=== PATIENT | male | born 1955 | race Caucasian/White ===

== ENCOUNTER 2018-08-28 09:18 | Outpatient (CLI) | payer OTHER ==
[2018-08-28] MEDS ORDERED: DOBUTamine/DEXTROSE 250 ML IV ONE (09:41)
--- NOTE | 2018-08-28 10:40 | ECHO ---
[email or web address] [address] [address] Main: [phone] Fax: Transthoracic Echocardiogram Name: MICHAEL GALLEGO MR#: [id number] Study Date: 08/28/2018 Study Time: 09:48 AM Date of : 1955 Age: 62 year(s) Height: 185.4 cm (73 in.) Weight: 85.28 kg (188 lb.) BSA: 2.1 m2 Gender: Male Examination: DSE Indication: Doubtamine Stress Echo Image Quality: Contrast: Requested by: Naeem Wayne BP: 154 mmHg/99 mmHg Heart Rate: Rhythm: Normal sinus rhythm Indication: Doubtamine Stress Echo Procedure Staff Musical String Maker: Zacarias Duggan RDCS Reading Physician: Earl Reynoso MD Requesting Provider: Conclusions: This a doubtamine stress echo to evaluate the aortic valve gradients. The left ventricle is preserved with a normal ejection fraction. The prior echo from 07/04/2018 displayed a bicuspid aortic valve with a AV Vmax of 3.1 m/s and a AV mean PG of 27 mmHg and a FRANKY of 1.2 cm2 At 30mc the AV Vmax increased to 5.0 m/s with a AV mean PG of 49 mmHg. and a FRANKY of .69 cm2 Baseline ECG, NSR with no ischemic changes with dobutamine infusion. Measurements: Chambers Valvular Assessment AV/MV Valvular Assessment TV/PV Normal Normal Normal Name Value Range Name Value Range Name Value Range LVOTd 2.3 cm 2.3 cm mm AV Vmax: 5.01 m/s (1 m/s-1.7 m/s) AV maxP mmHg ( - ) AV meanP mmHg ( - ) LVOT Vmax: 0.83 m/s (0.7 m/s-1.1 m/s) FRANKY (Vmax): 0.7 cm2 ( - ) FRANKY (VTI): 1.4 cm ( - ) Continued Measurements: Findings: Exam Comments: This a doubtamine stress echo to evaluate the aortic valve gradients. The left ventricle is preserved with a normal ejection fraction. The prior echo from 07/04/2018 displayed a bicuspid aortic valve with a AV Vmax of 3.1 m/s and a AV mean PG of 27 mmHg and a FRANKY of 1.2 cm2 At 30mc the AV Vmax increased to 5.0 m/s with a AV mean PG of 49 mmHg. and a FRANKY of .69 cm2 Baseline ECG, NSR Patient: MICHAEL GALLEGO Study Date: 08/28/2018 Page 1 of 2 09:48 AM with no ischemic changes with dobutamine infusion. (No Signature Object) Patient: MICHAEL GALLEGO Study Date: 08/28/2018 Page 2 of 2 09:48 AM [id number]
== END 2018-08-28 10:00 | disposition home or self-care (01) ==
LOC: FCATH 09:18
PROVIDERS: ATTEND Thoracic Surgery (Cardiothoracic Vascular Surgery)
DX: Q23.0 Congenital stenosis of aortic valve (principal); I47.1 Supraventricular tachycardia; I77.810 Thoracic aortic ectasia
CPT/HCPCS: J1250

== ENCOUNTER 2018-09-30 07:22 | Day surgery (SDC) | payer OTHER ==
[~2018-09-30 07:22] MED LIST: ASPIRIN EC 325 MG TAB PO ONE; DIAZEPAM 5 MG TAB PO ONE; FAMOTIDINE 20 MG TAB PO ONE; NS 1,000 ML IV ONE; diphenhydrAMINE 25 MG CAP PO ONE
[2018-09-30 08:16] LABS: PLATELET COUNT 180 10^3/uL (150-400)
[2018-09-30 08:24] LABS: INR 1.04 (0.83-1.16); PROTIME(PATIENT) 13.8 SEC (12.0-15.0)
[2018-09-30] MEDS ORDERED: LIDOCAINE 1% 300 MG/30 ML SDV ONE (08:39)
[2018-09-30] MEDS ORDERED: fentaNYL 100 MCG/2 ML INJ ONE (08:39)
[2018-09-30] MEDS ORDERED: MIDAZOLAM 2 MG/2 ML VIAL ONE ×2 (08:39→09:56)
[2018-09-30] MEDS ORDERED: VERAPAMIL 5 MG/2 ML VIAL ONE ×2 (08:40→09:46)
[2018-09-30] MEDS ORDERED: IOPAMIDOL (ISOVUE-370) 150 ML BTL IV ONE (08:40)
[2018-09-30] MEDS ORDERED: HEPARIN 10,000 UNIT/10 ML MDV (1,000 UNIT/ML) ONE (08:40)
--- NOTE | 2018-09-30 08:41 | PDPROPOC ---
Sedation Plan of Care Sedation Plan of Care: vital signs stable, mental status noted, patient educated of risks, benefits, alternatives, patient can tolerate sedation ASA Classification: ASA 1 Planned drugs: fentanyl, midazolam Mallampati Score: Class 1 Mallampati Reference Image: Patient passed 3-3-2 rule?: Yes
--- NOTE | 2018-09-30 08:51 | PDGENHP ---
History & Physical Chief Complaint: Planned aortic valve replacement, aortic root replacement, Lux Maze 4. History of Present Illness: History of bicuspid aortic valve with aortic stenosis and mild annular aortic ectasia. Pertinent Past, Social, Family History: Bicuspid aortic valve, severe aortic stenosis, paroxysmal atrial fibrillation, hypertension. Relevant Physical Exam: Alert and oriented x3, clear lungs bilaterally, regular rate and rhythm with a 2/6 systolic ejection murmur left sternal border Cardiorespiratory Assessment: At the present time he is stable to undergo coronary angiography prior to the planned aortic valve replacement surgery.
[2018-09-30] MEDS ORDERED: ATROPINE SULFATE 1 MG/10 ML SYR IVP PRN (10:07)
[2018-09-30] MEDS ORDERED: NITROGLYCERIN 0.4 MG BTL SL PRN (10:07)
--- NOTE | 2018-09-30 10:13 | PDDXCAT ---
Diagnostic Cath Note - . Date: 09/30/18 Replenishment Merchandising Associate: Renato Indication: other (Preoperative coronary angiogram prior to planned aortic valve replacement surgery.) - Procedure Access: left wrist Procedure: coronary angiography - Materials Left Heart Cath size: 5F Left Heart Cath materials: JL4.0, JR4.0 - Findings-Left Heart Catheterization LM: Large caliber vessel. Bifurcates into the left anterior descending and circumflex distributions. Angiographically free of disease. LAD: Large caliber vessel. 2 principal diagonal branches. Angiographically free of disease. LCX: Moderate caliber vessel. Diminutive after a large proximal 1st obtuse marginal branch. Angiographically free of disease. RCA: Large caliber dominant vessel. The PDA and 4 posterolateral branches are noted. Angiographically free of disease. EDP: The aortic valve was not crossed. Complications: None. Estimated blood loss: <50ml Closure method: TR Band Assessment: Angiographically normal epicardial coronary arteries with a right- dominant system. Known bicuspid aortic valve with critical aortic stenosis and mild annuloaortic ectasia from previous workup. Plan: There are plans for the patient to undergo aortic valve replacement surgery, aortic root replacement and Lux Maze 4 in the near future. Intervention: None.
--- NOTE | 2018-09-30 11:52 | CPEKG ---
Test Reason : OPEN Blood Pressure : / mmHG Vent. Rate : 049 BPM Atrial Rate : 050 BPM P-R Int : 234 ms QRS Dur : 115 ms QT Int : 485 ms P-R-T Axes : 037 -17 038 degrees QTc Int : 438 ms Sinus bradycardia Prolonged PA interval Probable left atrial enlargement Left ventricular hypertrophy Confirmed by Jeanna Caldwell ([id number]) on 09/30/2018 11:52:22 AM Referred By: Confirmed By:Jeanna Caldwell
== END 2018-09-30 13:18 | disposition home or self-care (01) ==
LOC: FCATH 07:22
PROVIDERS: ATTEND Internal Medicine Cardiovascular Disease
PROC: B2111ZZ Fluoroscopy of Multiple Coronary Arteries using Low Osmolar Contrast (ICD-10-PCS; principal; 2018-09-30)
DX: Z01.810 Encounter for preprocedural cardiovascular examination (principal); Q23.1 Congenital insufficiency of aortic valve; I77.819 Aortic ectasia, unspecified site; I48.0 Paroxysmal atrial fibrillation; I10 Essential (primary) hypertension
CPT/HCPCS: 71046; 93005; 93454; 93880; C1769; J1644; J2250; J3010; Q9967

== ENCOUNTER 2018-10-08 05:29 | Inpatient (IN) | payer BC, OTHER ==
[~2018-10-08 05:29] MED LIST changes: -ASPIRIN EC 325 MG TAB PO ONE; -DIAZEPAM 5 MG TAB PO ONE; -FAMOTIDINE 20 MG TAB PO ONE; +LIDOCAINE 1% 2 ML INJ ID PRN; -NS 1,000 ML IV ONE; -diphenhydrAMINE 25 MG CAP PO ONE
[2018-10-08] MEDS ORDERED: MANNITOL 25% 12.5 GM/50 ML VIAL IVP ONE (06:00)
[2018-10-08] MEDS ORDERED: PHENYLEPHRINE HCL 50 MG in NS 250 ML IV ONE (06:00)
[2018-10-08] MEDS ORDERED: ceFAZolin 2 GM/DEXTROSE 100 ML IV ONE (06:00)
[2018-10-08] MEDS ORDERED: MUPIROCIN 2% 22 GM OINT NS ONE (06:00)
[2018-10-08] MEDS ORDERED: DOBUTamine/DEXTROSE 250 ML IV ONE (06:00)
[2018-10-08] MEDS ORDERED: CITRATE DEXTROSE SOLN 500 ML BAG MISC ONE (06:00)
[2018-10-08] MEDS ORDERED: AMINOCAPROIC ACID 5 GM/20 ML VIAL IV ONE (06:00)
[2018-10-08] MEDS ORDERED: MILRINONE/DEXTROSE 100 ML IV ONE (06:00)
[2018-10-08] MEDS ORDERED: NOREPINEPHRINE BITARTRATE 16 MG in NS 250 ML IV ONE (06:00)
[2018-10-08] MEDS ORDERED: CARDIOPLEGIC SOLUTION 1,052.8 ML PF ONE (06:00)
[2018-10-08] MEDS ORDERED: INSULIN REGULAR HUMAN 100 UNIT in NS 100 ML IV ONE (06:00)
[2018-10-08] MEDS ORDERED: niCARdipine/NACL 200 ML IV ONE (06:00)
[2018-10-08] MEDS ORDERED: MILRINONE/DEXTROSE/100 ML BAG IV ONE (06:18)
[2018-10-08] MEDS ORDERED: HEPARIN 10,000 UNIT/10 ML MDV (1,000 UNIT/ML) ONE ×2 (06:18→06:21)
[2018-10-08] MEDS ORDERED: CALCIUM CHLORIDE 1 GM/10 ML INJ ONE ×2 (06:18→06:21)
[2018-10-08] MEDS ORDERED: PROTAMINE SULFATE 50 MG/5 ML VIAL IVP ONE (06:18)
[2018-10-08] MEDS ORDERED: NA BICARBONATE 50 MEQ/50 ML VIAL ONE (06:18)
[2018-10-08] MEDS ORDERED: ADENOSINE 6 MG/2 ML VIAL ONE (06:19)
[2018-10-08] MEDS ORDERED: AMIODARONE HCL 150 MG/3 ML VIAL ONE ×2 (06:19→06:21)
[2018-10-08] MEDS ORDERED: DOPamine/DEXTROSE 400 MG/250 ML BAG IV ONE ×2 (06:19→13:50)
[2018-10-08] MEDS ORDERED: ceFAZolin 1 GM VIAL ONE (06:19)
[2018-10-08] MEDS ORDERED: NITROGLYCERIN/D5W 50 MG/250 ML BOTTLE IV ONE (06:19)
[2018-10-08] MEDS ORDERED: niCARdipine/NACL/200 ML BAG IV ONE (06:19)
[2018-10-08] MEDS ORDERED: ALBUMIN 5% 250 ML BOTTLE IV ONE ×2 (06:20→10:58)
[2018-10-08] MEDS ORDERED: SODIUM BICARBONATE 50 MEQ/50 ML SYR ONE (06:20)
[2018-10-08] MEDS ORDERED: MAGNESIUM SULFATE 1 GM/2 ML VIAL ONE (06:21)
[2018-10-08] MEDS ORDERED: LIDOCAINE 2% 100 MG/5 ML SYR ONE (06:21)
[2018-10-08] MEDS ORDERED: CITRATE DEXTROSE SOLN 500 ML BAG ONE (06:21)
[2018-10-08] MEDS ORDERED: methylPREDNISolone SOD SUCC 1 GM/8 ML VIAL ONE (06:21)
[2018-10-08] MEDS ORDERED: PHENYLEPHRINE 10 MG/ML SDV ONE (06:53)
[2018-10-08] MEDS ORDERED: EPINEPHrine 1 MG/ML INJ ONE (06:53)
--- NOTE | 2018-10-08 06:58 | PDGENHP ---
History and Physical - Chief Complaint pre-op cardiac surgery - History of Present Illness This is a 62 year old male who presents today for elective AVR (bioprosthetic), ascending aortic repair, and pulmonary vein isolation. He was previously seen in our clinic on 08/19/18 and again on 08/23/18. His bicuspid aortic valve stenosis is limiting his active lifestyle with declining exercise tolerance. Associated symptoms include dyspnea and fatigue. He has been in contact with our office regarding a cold and cough which has improved. He still has mild PND. No fever or chills. He does not receive anticoagulation for his atrial fibrillation ([id number] score 1). Since he was seen by our service, he underwent a LHC by Dr. Gross which demonstrated an absence of CAD. US carotid was also negative for disease. History Information - Allergies/Home Medication List Allergies/Adverse Reactions: amlodipine [From [facility]] Allergy (Verified 10/08/18 06:16) Edema Home Medications: Brinzolamide/Brimonidine Tart [Simbrinza 1%-0.2% Eye Drops] 1 drop EACHEYE TID 09/23/18 [Last Taken 10/08/18] Flecainide Acetate 150 mg PO BID 09/23/18 [Last Taken 10/07/18] Herbals/Supplements -Info Only 1 ea PO DAILY 09/23/18 [Last Taken 10/07/18] Levothyroxine [Synthroid 75 mcg (*)] 75 mcg PO DAILY06 09/23/18 [Last Taken ] Losartan Potassium [Cozaar 25 mg (*)] 25 mg PO BID 09/23/18 [Last Taken 10/07/18 ] Magnesium Oxide [Magnesium Oxide 400 mg (*)] 400 mg PO DAILY 09/23/18 [Last Taken 10/06/18] [place]-3 Fatty Acids [Fish Oil 1000 mg (*)] 1,000 mg PO DAILY 09/23/18 [Last Taken 10/07/18] Omeprazole 20 mg PO DAILY 09/23/18 [Last Taken 10/07/18] Vitamin B Complex [Vitamin B Complex (OTC)] 1 each PO DAILY 09/23/18 [Last Taken 10/07/18] Aspirin [Aspirin 81mg (*)] 81 mg PO DAILY 09/30/18 [Last Taken 10/03/18] I have personally reviewed and updated: family history, medical history, social history, surgical history - Social History Smoking Status: Never smoked Review of Systems Review of Systems: ROS: 10pt was reviewed & negative except for what was stated in HPI & below Physical Exam Physical Exam: Gen: NAD, appears well HEENT: NCAT, MMM Cardiac: systolic murmur, no edema Resp: CTAB, no wheezes GI: soft, NT, ND Extremities: no rash or lesion Neuro: A&O, normal mood and affect Temp Pulse Resp BP Pulse Ox 36.9 C 57 L 16 135/90 H 95 10/08/18 06:22 10/08/18 06:22 10/08/18 06:22 10/08/18 06:22 10/08/18 06:22 Lab Data & Imaging Review Visualized and Interpreted Chest x-ray results: Yes Assessment & Plan Assessment: Severe aortic stenosis due to bicuspid aortic valve Dilated ascending aorta, 4.3 cm Paroxysmal atrial fibrillation [id number] 1 Normal coronaries Hypertension Plan: Aortic valve replacement (tissue), ascending aortic resection & grafting, pulmonary vein isolation, and left atrial appendectomy with Dr. Jj.
[2018-10-08] MEDS ORDERED: LR 1,000 ML IV ONE (06:59)
[2018-10-08] MEDS ORDERED: MIDAZOLAM 2 MG/2 ML VIAL IVP ONE (07:10)
[2018-10-08] MEDS ORDERED: fentaNYL 250 MCG/5 ML INJ ONE ×2 (07:11)
[2018-10-08] MEDS ORDERED: PROPOFOL 200 MG/20 ML VIAL ONE (07:11)
[2018-10-08] MEDS ORDERED: MIDAZOLAM 2 MG/2 ML VIAL ONE ×3 (07:12→09:46)
[2018-10-08] MEDS ORDERED: ROCURONIUM 100 MG/10 ML VIAL ONE (07:14)
[2018-10-08] MEDS ORDERED: LIDOCAINE 2% 2 ML INJ ONE ×3 (07:14)
[2018-10-08] MEDS ORDERED: SUCCINYLCHOLINE CHLORIDE 200 MG/10 ML SYR IVP ONE (07:15)
--- NOTE | 2018-10-08 07:19 | PDANEPAE ---
ANE History of Present Illness avr, asc aortic an rep ANE Past Medical History - Cardiovascular History Hx Hypertension: Yes Hx Arrhythmias: Yes Hx Chest Pain: No Hx Coronary Artery / Peripheral Vascular Disease: Yes Hx CHF / Valvular Disease: Yes Hx Palpitations: No Cardiovascular History Comment: AFIB. aortic stenosis. bicupsid aortic valve. murmur - Pulmonary History Hx COPD: No Hx Asthma/Reactive Airway Disease: No Hx Recent Upper Respiratory Infection: Yes Hx Oxygen in Use at Home: No Hx Sleep Apnea: No Sleep Apnea Screening Result - Last Documented: Positive Pulmonary History Comment: yasemin triggers only - Neurologic History Hx Cerebrovascular Accident: No Hx Seizures: No Hx Dementia: No - Endocrine History Hx Diabetes: No Hypothyroid: No Hyperthyroid: No Obesity: no Endocrine History Comment: hypothyroidism - Renal History Hx Renal Disorders: Yes Renal History Comment: hx of prostate surgery 2017 for enlarged prostate. some symptoms returning. pcp told him his kidney function is down a little bit - Liver History Hx Hepatic Disorders: No - Neurological & Psychiatric Hx Hx Neurological and Psychiatric Disorders: No - Cancer History Hx Cancer: No - Congenital Disorder History Hx Congenital Disorders: No - GI History GERD: mild Hx Gastrointestinal Disorders: Yes Gastrointestinal History Comment: GERD. hx of EGD's and Colonoscopy. last EGD done 09/29/18 - Other Health History Other Health History: glaucoma. wears glasses - Chronic Pain History Chronic Pain: No - Surgical History Prior Surgeries: cath 09/30/18. laser prostate surgery 2017. left elbow surgery. right knee surgery. right shoulder surgery. egd's and colonoscopies ANE Review of Systems Review of Systems: - Exercise capacity Exercise capacity: >=4 METS METS (RN): 3 METS ANE Patient History - Allergies Allergies/Adverse Reactions: amlodipine [From [facility] ?] Allergy (Verified 10/08/18 06:16) Edema - Home Medications Home Medications: Brinzolamide/Brimonidine Tart [Simbrinza 1%-0.2% Eye Drops] 1 drop EACHEYE TID 09/23/18 [Last Taken 10/08/18] Flecainide Acetate 150 mg PO BID 09/23/18 [Last Taken 10/07/18] Herbals/Supplements -Info Only 1 ea PO DAILY 09/23/18 [Last Taken 10/07/18] Levothyroxine [Synthroid 75 mcg (*)] 75 mcg PO DAILY06 09/23/18 [Last Taken ] Losartan Potassium [Cozaar 25 mg (*)] 25 mg PO BID 09/23/18 [Last Taken 10/07/18 ] Magnesium Oxide [Magnesium Oxide 400 mg (*)] 400 mg PO DAILY 09/23/18 [Last Taken 10/06/18] [place]-3 Fatty Acids [Fish Oil 1000 mg (*)] 1,000 mg PO DAILY 09/23/18 [Last Taken 10/07/18] Omeprazole 20 mg PO DAILY 09/23/18 [Last Taken 10/07/18] Vitamin B Complex [Vitamin B Complex (OTC)] 1 each PO DAILY 09/23/18 [Last Taken 10/07/18] Aspirin [Aspirin 81mg (*)] 81 mg PO DAILY 09/30/18 [Last Taken 10/03/18] - NPO status NPO Status: no food or drink >8 hours NPO Since - Liquids (Date): 10/08/18 NPO Since - Liquids (Time): 03:00 NPO Since - Solids (Date): 10/07/18 NPO Since - Solids (Time): 23:00 - Smoking Hx Smoking Status: Never smoked - Family Anes Hx Family Hx Anesthesia Complications: none ANE Labs/Vital Signs - Vital Signs Blood Pressure: 135/90 Heart Rate: 57 Respiratory Rate: 16 O2 Sat (%): 95 Height: 185.4 cm Weight: 83.2 kg ANE Physical Exam - Airway Mallampati Score: Class 2 Mouth exam: normal dental/mouth exam - Pulmonary Pulmonary: no respiratory distress - Cardiovascular Cardiovascular: regular rate and rhythym - ASA Status ASA Status: III ANE Anesthesia Plan Anesthesia Plan: general endotracheal anesthesia Lines/Monitors: arterial line, central line, FATMATA (pulm art cath)
[2018-10-08] MEDS ORDERED: LIDOCAINE 2% JELLY 20 ML (UROJECT) ONE (07:40)
[2018-10-08] MEDS ORDERED: ASPIRIN 81 MG CHEWABLE TAB PO SCH (09:00)
[2018-10-08] MEDS ORDERED: DEXMEDETOMIDINE HCL 400 MCG in NS 100 ML IV SCH (10:30)
--- NOTE | 2018-10-08 11:01 | POSTOPPROG ---
Post Op Note Date of Operation: 10/08/18 Surgeon: Gentry Cantor Assistant: Osmany Romano PAC Anesthesia: GET(General Endotracheal) Pre-op Diagnosis: bicuspid aortic valve stenosis, ascending aortic aneurysm, PAF Post-op Diagnosis: as above Procedure: AVR(#25 Inspiris Resilia), resection/grafting of ascending aorta , PVI ZIA Findings: bicuspid valve Inf/Abcess present in the surg proc area at time of surgery?: No Depth: Organ Space EBL: 100-500 Complications: None Drains: Other (Chest tubes - 1 right pleural, 1 left pleural, 1 mediastinal) Specimen(s): None
--- NOTE | 2018-10-08 11:12 | GOP ---
DATE OF OPERATION: 10/08/2018 SURGEON: Gentry Cantor MD PELLETISING EXTRUDER OPERATOR: Osmany Romano P.A.-c. PREOPERATIVE DIAGNOSIS: 1. Severe aortic stenosis. 2. Ascending aortic aneurysm. 3. Intermittent atrial fibrillation. POSTOPERATIVE DIAGNOSIS: 1. Severe aortic stenosis. 2. Ascending aortic aneurysm. 3. Intermittent atrial fibrillation. PROCEDURE PERFORMED: 1. Aortic valve replacement using a 25 mm Thao Resilia bioprosthetic valve. 2. Resection and repair of ascending aortic aneurysm using a 30 mm Hemashield graft. 3. Pulmonary vein isolation bilateral with radiofrequency ablation. 4. Left atrial appendage occlusion. FINDINGS: INDICATIONS: The patient is a 62-year-old gentleman with a history of bicuspid aortic stenosis. He has been experiencing progressive symptoms including dyspnea and fatigue on exertion. He was found t o have severe aortic stenosis and an associated ascending aortic aneurysm. He was recommended to und ergo aortic valve replacement and aneurysm repair. Due to his history of intermittent atrial fibrill ation, the pulmonary veins are being isolated bilaterally and the appendage is being ligated. DESCRIPTION OF PROCEDURE: The patient was taken to the operating room and placed on the operating ta ble in the supine position. After the induction of general anesthesia and single-lumen tracheal tube invasion, patient was prepped and draped sterilely. A standard median sternotomy was performed. Th e patient was fully heparinized. He was cannulated with a Sarns 8.0 Soft-Flow aortic cannula as well as a dual-stage venous right atrial cannula. Cardiopulmonary bypass was instituted. First, bilatera l pulmonary vein isolation was performed using an RFA system. Both sites were ablated until the abla tion time was less than 5 seconds. The left atrial appendage was then snared twice and occluded. Next, the cross-clamp was applied. The heart was arrested with 1 L of [place] solution. The aorta was transected. The aneurysm itself was resected and sent as a specimen. The aortic valve was heavi ly calcified, severely stenotic, and bicuspid. It was excised and the anulus was meticulously debrid ed. It was sized to a 25 mm Resilia valve. Sutures were placed around the anulus with pledgets on t he ventricular side. The valve was seated without difficulty. The proximal distal aorta was reinfor katheryn with Dacron and then a 30 mm Hemashield graft was sewn end to end first proximally then distally. The vent was replaced into the graft and the cross-clamp was removed. Two ventricular pacing wires were placed as well as left, right mediastinal chest tubes. The patient was from cardiopulmonary bypass without difficulty and the post pump transesoph ageal echo shows a normally functioning bioprosthetic valve in the aortic position and preservation o f left ventricular function. Once the protamine had been administered, and the patient was decannula artur, all the cannulation sites were doubly secured with Prolene suture and after hemostasis had been achieved, the heart was covered with pericardium and fat. The chest was closed with #6 stainless gali el wires. Subcutaneous tissue and skin were closed with running 0 Vicryl suture. The patient tolera artur the procedure well. /[id number]/MODL
--- NOTE | 2018-10-08 11:15 | ASMTCASEMG ---
Living Arrangements What is your living Answers: Alone arrangement? Who do you live with? Type Of Residence What kind of residence do Answers: House you live in? Discharge Plan Comments Coordination Status Comments Notes: Patient is a 62yo single male who was admitted for an elective AVR, ascending aortic repair and pulmonary vein isolation. Patient's bicuspid aortic valve stenosis is limiting his active lifestyle with declining exercise tolerance. No therapies ordered at this time. D/C plan TBD. CM will follow. Date Signed: 10/08/2018 11:15 AM Electronically Signed By:Delaney Lua LCSW
[2018-10-08] MEDS ORDERED: PANTOPRAZOLE SODIUM 40 MG VIAL IVP ONE (11:17)
[2018-10-08] MEDS ORDERED: ACETAMINOPHEN 650 MG SUPP PR PRN (11:17)
[2018-10-08] MEDS ORDERED: ACETAMINOPHEN 325 MG TAB PO PRN (11:17)
[2018-10-08] MEDS ORDERED: LACTULOSE 20 GM/30 ML UDCUP PO PRN (11:17)
[2018-10-08] MEDS ORDERED: METOCLOPRAMIDE 10 MG/2 ML VIAL IVP PRN (11:17)
[2018-10-08] MEDS ORDERED: ONDANSETRON DISINTEGRATING 4 MG TAB PO PRN (11:17)
[2018-10-08] MEDS ORDERED: SODIUM CL NASAL 45 ML BTL EACHNARE PRN (11:17)
[2018-10-08] MEDS ORDERED: MEPERIDINE 25 MG/0.5 ML AMP IVP PRN (11:17)
[2018-10-08] MEDS ORDERED: fentaNYL 100 MCG/2 ML INJ IVP PRN (11:17)
[2018-10-08] MEDS ORDERED: MAGNESIUM HYDROXIDE 30 ML UDCUP PO PRN (11:17)
[2018-10-08] MEDS ORDERED: POTASSIUM Cl (KCl) 50 ML IV PRN (11:17)
[2018-10-08] MEDS ORDERED: BISACODYL 10 MG SUPP PR PRN (11:17)
[2018-10-08] MEDS ORDERED: D50W 25 GM/50 ML SYR IVP PRN (11:17)
[2018-10-08] MEDS ORDERED: POLYETHYLENE GLYCOL 3350 17 GM PKT PO PRN (11:17)
[2018-10-08] MEDS ORDERED: ONDANSETRON 4 MG/2 ML VIAL IVP PRN (11:17)
--- NOTE | 2018-10-08 11:29 | POSTANESTH ---
Post Anesthetic Evaluation Cardiovascular Status: Normal, Stable, Tx Hyper/Hypo-tension Respiratory Status: Normal, Stable, Other, See Comment (stable on vent) Level of Consciousness/Mental Status: Mildly Sleepy, Arousable Pain Control: Adequate, Prn Tx Ordered Nausea/Vomiting Control: Adequate, Prn Tx Ordered Complications Possibly Related to Anesthesia: None Noted
[2018-10-08] MEDS ORDERED: niCARdipine/NACL 200 ML IV SCH (11:30)
[2018-10-08] MEDS ORDERED: INSULIN REGULAR HUMAN 100 UNIT in NS 100 ML IV SCH (11:30)
[2018-10-08] MEDS ORDERED: NS 1,000 ML IV SCH (11:30)
[2018-10-08] MEDS: ALBUMIN 5% 250 ML IV PRN ×2 (12:30→12:50)
--- NOTE | 2018-10-08 13:03 | GCON ---
STRIKE PLANNING APPLICATIONS CONSULTATION REFERRING PHYSICIAN: Gentry Cantor MD Patient examined postoperatively after receiving aortic valve replacement, ascending aortic resection and grafting, pulmonary vein isolation, and left atrial appendectomy. I have been asked to see the patient by Dr. Gentry Cantor. HISTORY OF PRESENT ILLNESS: The patient is a very pleasant 62-year-old white male with a past medica l history of hypertension and hypothyroidism. Again, he is examined postoperatively. Patient is curr ently awake and alert and off mechanical ventilation. He states with the exception of chest pain, he is doing quite well. He does admit to some breathlessness. He denies any cough or productive sputu m. There is no chest pain, pleuritic-type chest pain or angina equivalent. There is no fever or nig ht sweats. Currently, he is resting comfortably. REVIEW OF SYSTEMS: Ten-point review of systems is performed and negative, except for what is listed in the HPI. ALLERGIES: Amlodipine. FAMILY HISTORY: Noncontributory. PAST MEDICAL HISTORY: Significant for hypertension and hypothyroidism. SOCIAL HISTORY: No history of tobacco use. Infrequent alcohol use. 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 He is single, without children. He has lived in [place] for 40 years but is originally from [place]. PHYSICAL EXAM: VITAL SIGNS: Blood pressure is 106/52. Pulse is 60, respirations 16. Temperature i s 36.9. Oxygen saturation 94% on 2 L. GENERAL: He is a well-developed, well-nourished 62-year-old white male who is resting comfortably, with mild chest pain. HEENT: Eyes, PERRL, EOMI. Throat show s no erythema or tonsillar hypertrophy. NECK: Supple. There is no cervical adenopathy. HEART: Re gular rate and rhythm, with a 2/6 systolic murmur, left sternal border, without radiation. He is tay ewhat bradycardic. LUNGS: Diminished breath sounds, but no wheeze. ABDOMEN: Soft, nontender. Linn el sounds are present in all 4 quadrants. EXTREMITIES: No clubbing, cyanosis, or edema. LABORATORIES: Currently pending. IMPRESSION: 1. Status post aortic valve replacement, with ascending aortic resection and grafting, pulmonary vei n isolation. 2. History of severe aortic stenosis. 3. History of hypertension. 4. Hypothyroidism. RECOMMENDATIONS: 1. Adequate pain control. 2. Wean FiO2 as tolerated. 3. DVT and PE prophylaxis, holding anticoagulation for now. 4. Stress ulcer prophylaxis. 5. Continue the majority of his home medications. 6. Early ambulation. 7. PT and OT. /[id number]/MODL
[2018-10-08] MEDS: Brinzolamide/Brimonidine Tart [Simbrinza 1%-0.2% Eye Drops] 1 DROP EACHEYE SCH ×3 (13:26→21:10)
[2018-10-08] MEDS ORDERED: ALBUMIN 5% 250 ML IV ONE ×2 (13:30)
[2018-10-08] MEDS: ceFAZolin 2 GM/DEXTROSE 100 ML IV SCH ×2 (13:35→21:10)
--- NOTE | 2018-10-08 14:16 | PDMN ---
Medical Necessity Medical necessity: [facility] [place] S140 Aortic Aneurysm, Thoracic, Repair w/ Graft, 5 day, MC IP only, 62 yo s/p aortic valve replacement, AAA repair, Maze procedure
[2018-10-08] MEDS: DOBUTamine/DEXTROSE 250 ML IV SCH (15:07)
--- NOTE | 2018-10-08 15:19 | CPEKG ---
Test Reason : OPEN Blood Pressure : / mmHG Vent. Rate : 062 BPM Atrial Rate : 062 BPM P-R Int : 235 ms QRS Dur : 139 ms QT Int : 531 ms P-R-T Axes : 084 096 019 degrees QTc Int : 540 ms Sinus rhythm Prolonged WV interval Right ventricular conduction defect Possible LVH by voltage. No significant change from September 30, 2018 with the absence of current evidence for left atrial abn ormalityy Confirmed by Osmany Altman ([id number]) on 10/08/2018 3:18:41 PM Referred By: Confirmed By:Osmany Altman
[2018-10-08] MEDS: HYDROCODONE/APAP 5/325 TAB PO PRN ×2 (19:41→23:28)
[2018-10-08] MEDS: MUPIROCIN 2% 22 GM OINT NS SCH (21:11)
[2018-10-09] MEDS ORDERED: ALBUMIN 5% 250 ML BOTTLE IV ONE (00:46)
[2018-10-09] MEDS ORDERED: ALBUMIN 5% 250 ML IV ONE (01:30)
[2018-10-09] MEDS: CEPACOL LOZENGE PO PRN ×2 (01:48→10:06)
[2018-10-09] MEDS: HYDROCODONE/APAP 5/325 TAB PO PRN ×5 (02:42→20:44)
[2018-10-09 04:20] LABS: PLATELET COUNT 78 10^3/uL (150-400)
[2018-10-09] MEDS: LEVOTHYROXINE 75 MCG TAB PO SCH (05:07)
[2018-10-09] MEDS: ceFAZolin 2 GM/DEXTROSE 100 ML IV SCH ×3 (06:20→22:09)
--- NOTE | 2018-10-09 07:53 | SOAPPROG ---
SOAP Progress Note Assessment/Plan: POD # 1 s/p AVR (tissue), resection & grafting ascending aorta, PVI, ZIA Bicuspid aortic valve with severe stenosis with dilated ascending aorta s/p AVR (tissue), resection & grafting of ascending aorta - normal pre-op EF; required dopamine and dobutamine overnight as well as albumin for hypotension. Overnight BP 101/56-134/58 HR 69-74 CI 19 to 2.6, MAP 65-72, SvO2 57-59 CO 4.5 PA 27/20-34 /25 CVP 12-15. Plan to wean dopamine first, then dobutamine, then dc swan. Paroxysmal atrial fibrillation ([id number] 1) s/p PVI/ZIA - NSR, start ASA today Post-operative bradycardia - yesterday as low as 49 and required pacing, hold BB Acute blood loss anemia with thrombocytopenia - expected, H/H 10.3 & 29.4, plt 78; monitor & repeat CBC tomorrow Acute respiratory insufficiency - resolved, extubated yesterday per Dr. Solis/ [facility] [place] Hypertension - pre-op Losartan, held Hypothyroidism - on Synthroid Plan: Wean dopa first, then dobutamine Dc Hope after off IV vasopressors Dc chest tubes today Start coumadin tomorrow CXR, CBC, PTINR, BMP tomorrow ordered Subjective: Doing okay. + chest discomfort. Objective: Vital Signs Temp Pulse Resp BP Pulse Ox 37.8 C 77 18 116/57 L 96 10/09/18 07:00 10/09/18 07:00 10/09/18 07:00 10/09/18 07:00 10/09/18 07:00 Laboratory Results 10/09/18 04:00 10/09/18 04:00 10/08/18 10/09/18 10/10/18 05:59 05:59 05:59 Intake Total 2920.4 Output Total 2007 Balance 912.4 General: NAD, sitting upright in chair HEENT: CVL IJ w/Hope, MMM Respiratory: nasal cannula oxygen at 2L Cardiac: NSR, no edema GI: soft, nt, nd : + gan Extermities: arterial line Incisions: sternum - CDI Chest tubes: 400/340 serosang no airleak CXR - reviewed, congested bilaterally DVT prophylaxis: SCDs Arterial Line: needed for IV vasopressors Gan: needed for accurate I&O's CVC: yes, need for ongoing management, labs Chest Tubes: yes, to be removed today Pacing Wires: yes Beta Breana: held d/t bradycardia yesterday & active IV vasopressors Statin: no CAD Aspirin: to be started today Coumadin: plan to start coumadin tomorrow for 8 weeks ICD10 Worksheet Patient Problems: Problems Problem Status Onset Acute blood loss anemia Acute S/P AVR Acute S/P ascending aortic aneurysm repair Acute Status post circumferential ablation of pulmonary vein Acute Aortic stenosis due to bicuspid aortic valve Chronic Ascending aorta dilatation Chronic PAT (paroxysmal atrial tachycardia) Chronic S/P AVR Acute
[2018-10-09] MEDS: ASPIRIN 81 MG CHEWABLE TAB PO SCH (08:17)
[2018-10-09] MEDS: Brinzolamide/Brimonidine Tart [Simbrinza 1%-0.2% Eye Drops] 1 DROP EACHEYE SCH ×3 (08:18→22:09)
[2018-10-09] MEDS: MUPIROCIN 2% 22 GM OINT NS SCH ×2 (08:18→20:43)
--- NOTE | 2018-10-09 09:02 | PDINTPN ---
Financial Administrator Progress Note Assessment/Plan: Assessment/plan: * Status post aortic valve replacement with ascending aortic resection and grafting * Severe aortic stenosis * History of hypertension * Pain-well controlled * Respiratory-stable on minimal oxygen * PT/OT * Ambulation Subjective: Sitting up in chair. Resting comfortably. Pain well tolerated except with deep inspiration or cough Objective: Vital Signs Temp Pulse Resp BP Pulse Ox 37.8 C 70 15 130/67 H 98 10/09/18 08:00 10/09/18 08:00 10/09/18 08:00 10/09/18 08:00 10/09/18 08:00 Laboratory Results 10/09/18 04:00 10/09/18 04:00 10/08/18 10/09/18 10/10/18 05:59 05:59 05:59 Intake Total 2920.4 Output Total 2007 240 Balance 912.4 -240 - Time Spent With Patient Time Spent With Patient: 35 min of time spent with patient, over 1/2 involved with coordination of care counseling. Case discussed with nursing Physical Exam - Physical Exam General Appearance: alert, no apparent distress EENT: PERRL/EOMI Neck: non-tender, full range of motion Respiratory: crackles (Few basilar), No respiratory distress, No wheezing Cardiac/Chest: normal peripheral pulses, regular rate, rhythm, systolic murmur Peripheral Pulses: 2+: carotid (R), carotid (L), femoral (R), femoral (L), dorsalis-pedis (R), dorsalis-pedis (L) Abdomen: normal bowel sounds, non-tender, soft Male Genitalia: deferred Rectal: deferred Skin: normal color, warm/dry Extremities: normal range of motion, non-tender, normal inspection, normal capillary refill Neuro/Psych: alert ICD10 Worksheet Patient Problems: Problems Problem Status Onset Acute blood loss anemia Acute S/P AVR Acute S/P ascending aortic aneurysm repair Acute Status post circumferential ablation of pulmonary vein Acute Aortic stenosis due to bicuspid aortic valve Chronic Ascending aorta dilatation Chronic PAT (paroxysmal atrial tachycardia) Chronic S/P AVR Acute
[2018-10-09] MEDS: DOBUTamine/DEXTROSE 250 ML IV SCH (10:06)
--- NOTE | 2018-10-09 11:01 | ASMTCMCOM ---
CM Note CM Note Notes: Patient will start with therapies tomorrow. CM will follow. Date Signed: 10/09/2018 11:00 AM Electronically Signed By:Delaney Lua LCSW
[2018-10-09] MEDS ORDERED: ASPIRIN 81 MG CHEWABLE TAB TUBE PRN (11:17)
[2018-10-09] MEDS: PANTOPRAZOLE SODIUM 40 MG TAB PO SCH (12:33)
[2018-10-09] MEDS: SENNOSIDES/DOCUSATE SODIUM TAB PO SCH (20:41)
[2018-10-09] MEDS ORDERED: NS 500 ML IV ONE (21:30)
[2018-10-10] MEDS: HYDROCODONE/APAP 5/325 TAB PO PRN ×2 (03:59→12:20)
[2018-10-10 04:43] LABS: INR 1.4 (0.83-1.16); PROTIME(PATIENT) 17.3 SEC (12.0-15.0)
[2018-10-10] MEDS: LEVOTHYROXINE 75 MCG TAB PO SCH (05:58)
[2018-10-10] MEDS: Brinzolamide/Brimonidine Tart [Simbrinza 1%-0.2% Eye Drops] 1 DROP EACHEYE SCH ×4 (06:28→20:50)
[2018-10-10] MEDS: CEPACOL LOZENGE PO PRN (06:33)
[2018-10-10] MEDS: MUPIROCIN 2% 22 GM OINT NS SCH (07:55)
[2018-10-10] MEDS: SENNOSIDES/DOCUSATE SODIUM TAB PO SCH ×2 (07:55→19:40)
[2018-10-10] MEDS: ASPIRIN 81 MG CHEWABLE TAB PO SCH (07:55)
[2018-10-10] MEDS: PANTOPRAZOLE SODIUM 40 MG TAB PO SCH (07:56)
--- NOTE | 2018-10-10 08:00 | SOAPPROG ---
SOAP Progress Note Assessment/Plan: POD # 2 s/p AVR (tissue), resection & grafting ascending aorta, PVI, ZIA Bicuspid aortic valve with severe stenosis with dilated ascending aorta s/p AVR (tissue), resection & grafting of ascending aorta - normal pre-op EF; initially required dopamine and dobutamine as well as albumin for hypotension. Normotensive. Paroxysmal atrial fibrillation ([id number] 1) s/p PVI/ZIA - NSR, ASA. Coumadin for 8 weeks. Baseline INR 1.4 today. Post-operative bradycardia - POD#1 as low as 49 and required pacing, HR 61-71 NSR Acute blood loss anemia with thrombocytopenia - expected, stable Leukocytosis - expected, monitor Acute respiratory insufficiency - resolved, extubated yesterday per Dr. Solis/ [facility] Hypertension - pre-op Losartan, held Hypothyroidism - on Synthroid Plan: Dc art line Start coumadin 2.5 mg PO daily. Recheck K later today, BMP tomorrow Ketoralac 30 mg IV x 1 TTF Subjective: Chest discomfort. Objective: Vital Signs Temp Pulse Resp BP Pulse Ox 36.7 C 67 20 118/74 100 10/10/18 07:00 10/10/18 07:00 10/10/18 07:00 10/10/18 07:00 10/10/18 07:00 Laboratory Results 10/10/18 04:15 10/10/18 04:15 10/09/18 10/10/18 10/11/18 05:59 05:59 05:59 Intake Total 2920.4 1842 Output Total 2007 970 Balance 912.4 872 PT 17.3 SEC (12.0-15.0) H 10/10/18 04:15 INR 1.40 (0.83-1.16) H 10/10/18 04:15 General: NAD, sitting upright in chair HEENT: CVL IJ, MMM Respiratory: RA Cardiac: NSR, trace edema GI: soft, nt, nd Extermities: arterial line Incisions: sternum - CDI Chest tubes: out CXR - reviewed, stable DVT prophylaxis: SCDs Arterial Line: out today Hernandez: out CVC: yes, need for ongoing management, labs Chest Tubes: out Pacing Wires: wrap and cap ICD10 Worksheet Patient Problems: Problems Problem Status Onset Acute blood loss anemia Acute S/P AVR Acute S/P ascending aortic aneurysm repair Acute Status post circumferential ablation of pulmonary vein Acute Aortic stenosis due to bicuspid aortic valve Chronic Ascending aorta dilatation Chronic PAT (paroxysmal atrial tachycardia) Chronic S/P AVR Acute
[2018-10-10] MEDS ORDERED: KETOROLAC 30 MG/1 ML SDV IVP ONE (08:03)
[2018-10-10] MEDS ORDERED: FUROSEMIDE 20 MG/2 ML VIAL IVP ONE (08:13)
[2018-10-10] MEDS ORDERED: traMADol 50 MG TAB PO PRN (08:17)
[2018-10-10] MEDS ORDERED: KETOROLAC 15 MG/1 ML SDV ONE (12:22)
[2018-10-10] MEDS ORDERED: FUROSEMIDE 20 MG/2 ML VIAL ONE (12:22)
[2018-10-10] MEDS ORDERED: KETOROLAC 30 MG/1 ML SDV ONE (12:24)
--- NOTE | 2018-10-10 13:49 | SOAPPROG ---
SOAP Progress Note Assessment/Plan: Assessment: Plan: Objective: Vital Signs Temp Pulse Resp BP Pulse Ox 36.6 C 75 20 119/77 94 10/10/18 13:10 10/10/18 13:10 10/10/18 13:10 10/10/18 13:10 10/10/18 13:10 Laboratory Results 10/10/18 04:15 10/10/18 11:00 10/09/18 10/10/18 10/11/18 05:59 05:59 05:59 Intake Total 2920.4 1842 400 Output Total 2007 970 Balance 912.4 872 400 PT 17.3 SEC (12.0-15.0) H 10/10/18 04:15 INR 1.40 (0.83-1.16) H 10/10/18 04:15 Afebrile VSS NSR Hct 31% BMP nl Off O2 Feels fine. Mild pain Lungs clear Cor RRR w/o m Wound clean Stable postop. ICD10 Worksheet Patient Problems: Problems Problem Status Onset Acute blood loss anemia Acute S/P AVR Acute S/P ascending aortic aneurysm repair Acute Status post circumferential ablation of pulmonary vein Acute Aortic stenosis due to bicuspid aortic valve Chronic Ascending aorta dilatation Chronic PAT (paroxysmal atrial tachycardia) Chronic S/P AVR Acute
[2018-10-10] MEDS ORDERED: WARFARIN SODIUM 2.5 MG TAB PO ONE (16:00)
[2018-10-10] MEDS: KETOROLAC 30 MG/1 ML SDV IVP PRN (19:08)
[2018-10-11] MEDS: KETOROLAC 30 MG/1 ML SDV IVP PRN ×2 (03:06→16:55)
[2018-10-11] MEDS: Brinzolamide/Brimonidine Tart [Simbrinza 1%-0.2% Eye Drops] 1 DROP EACHEYE SCH ×3 (03:06→20:14)
[2018-10-11] MEDS: LEVOTHYROXINE 75 MCG TAB PO SCH (03:12)
[2018-10-11 03:37] LABS: INR 1.34 (0.83-1.16); PROTIME(PATIENT) 16.8 SEC (12.0-15.0)
--- NOTE | 2018-10-11 07:45 | SOAPPROG ---
SOAP Progress Note Assessment/Plan: POD #3: AVR with #25 Thao Resilia bioprosthetic aortic valve, resection and repair of ascending aortic aneurysm with #30 Hemashield graft, BL PVI RF ablation, suture ligation ZIA Severe aortic stenosis s/p bioprosthetic AVR - Thromboprophylaxis as per PVI ablation - CTs out - PT/OT Ascending aortic aneurysm s/p repair - Mgmt as per AVR Paroxysmal atrial fibrillation s/p BL PVI RF ablation with exclusion of ZIA - Pt in SR, beta-nahomi avoided d/t low HR - Coumadin with INR goal 2-3, duration as per Lux-Maze protocol (will hold Coumadin as platelets < 100) - PW to be removed tomorrow Acute post-op blood loss anemia with thrombocytopenia - Stable without the need for transfusion - Thrombocytopenia secondary to CPB - monitor DVT prophylaxis - SCDs Disposition - Plan for home without services earliest Saturday Subjective: Pain well-controlled. Denies SOB. Objective: Vital Signs Temp Pulse Resp BP Pulse Ox 36.8 C 68 16 101/70 95 10/11/18 03:43 10/11/18 03:43 10/11/18 03:43 10/11/18 03:43 10/11/18 03:43 Laboratory Results 10/11/18 03:11 10/11/18 03:11 10/10/18 10/11/18 10/12/18 05:59 05:59 05:59 Intake Total 1842 1525 Output Total 970 600 Balance 872 925 PT 16.8 SEC (12.0-15.0) H 10/11/18 03:11 INR 1.34 (0.83-1.16) H 10/11/18 03:11 Physical Exam - Physical Exam General Appearance: WD/WN, alert, no apparent distress EENT: No scleral icterus (R), No scleral icterus (L) Neck: normal inspection Respiratory: No respiratory distress Cardiac/Chest: regular rate, rhythm Abdomen: non-tender, soft, No distended Skin: normal color, warm/dry Extremities: pedal edema Neuro/Psych: no motor/sensory deficits, alert, normal mood/affect, oriented x 3 ICD10 Worksheet Patient Problems: Problems Problem Status Onset Acute blood loss anemia Acute S/P AVR Acute S/P ascending aortic aneurysm repair Acute Status post circumferential ablation of pulmonary vein Acute Aortic stenosis due to bicuspid aortic valve Chronic Ascending aorta dilatation Chronic PAT (paroxysmal atrial tachycardia) Chronic S/P AVR Acute
[2018-10-11] MEDS ORDERED: FUROSEMIDE 40 MG/4 ML VIAL IVP ONE ×2 (08:17→15:00)
[2018-10-11] MEDS: OMEGA-3 FATTY ACIDS 1,000 MG CAP PO SCH (08:45)
[2018-10-11] MEDS: ASPIRIN 81 MG CHEWABLE TAB PO SCH (08:45)
[2018-10-11] MEDS: VITAMIN B COMPLEX 1 EA CAP/TAB PO SCH (08:45)
[2018-10-11] MEDS: SENNOSIDES/DOCUSATE SODIUM TAB PO SCH ×2 (08:45→20:13)
[2018-10-11] MEDS: MAGNESIUM OXIDE 400 MG TAB PO SCH (08:45)
[2018-10-11] MEDS: PANTOPRAZOLE SODIUM 40 MG TAB PO SCH (08:46)
[2018-10-11] MEDS: CEPACOL LOZENGE PO PRN (11:33)
--- NOTE | 2018-10-11 12:47 | ASMTCMCOM ---
CM Note CM Note Notes: 10/12/2018 Case Management Note Reviewed chart. Per Edil Kearney's note pt will d/c home without services. Anticipating d/c early next week. Met w/pt to discuss. Pt requesting info on home care. Left list of agencies with understanding case management will hold off on referral until closer to discharge. Pt lives alone but has plans for friends to help once he is d/c. Pt plans for groceries to be delivered. Case Management d/c poc: anticipating independent with cardiac outpatient rehab Case Management to follow. Date Signed: 10/11/2018 12:46 PM Electronically Signed By:Gracie Yuan RN
[2018-10-11] MEDS ORDERED: POTASSIUM CL 20 MEQ TAB PO ONE (15:00)
[2018-10-12] MEDS: HYDROCODONE/APAP 5/325 TAB PO PRN (00:55)
[2018-10-12] MEDS: LEVOTHYROXINE 75 MCG TAB PO SCH (04:58)
[2018-10-12] MEDS: Brinzolamide/Brimonidine Tart [Simbrinza 1%-0.2% Eye Drops] 1 DROP EACHEYE SCH ×3 (04:59→20:36)
[2018-10-12 05:11] LABS: INR 1.29 (0.83-1.16); PROTIME(PATIENT) 16.3 SEC (12.0-15.0)
--- NOTE | 2018-10-12 07:51 | SOAPPROG ---
SONAEL Progress Note Assessment/Plan: POD #4: AVR with #25 Thao Resilia bioprosthetic aortic valve, resection and repair of ascending aortic aneurysm with #30 Hemashield graft, BL PVI RF ablation, suture ligation ZIA Severe aortic stenosis s/p bioprosthetic AVR - Thromboprophylaxis as per PVI ablation - Continue daily baby ASA - CTs out - PT/OT Ascending aortic aneurysm s/p repair - Mgmt as per AVR Paroxysmal atrial fibrillation s/p BL PVI RF ablation with exclusion of ZIA - Pt in SR, beta-nahomi avoided d/t low HR - Coumadin with INR goal 2-3, duration as per Lux-Maze protocol started - PW removed this AM Acute post-op blood loss anemia with thrombocytopenia - Stable without the need for transfusions DVT prophylaxis - SCDs Disposition - Home without services Saturday Subjective: Feels well. Would like to go home tomorrow. Lives alone but has extensive support. Objective: Vital Signs Temp Pulse Resp BP Pulse Ox 36.9 C 57 L 21 H 123/79 H 98 10/12/18 07:21 10/12/18 07:21 10/12/18 07:21 10/12/18 07:21 10/12/18 07:21 Laboratory Results 10/12/18 04:50 10/11/18 03:11 10/11/18 10/12/18 10/13/18 05:59 05:59 05:59 Intake Total 1525 915 Output Total 600 1375 Balance 925 -460 PT 16.3 SEC (12.0-15.0) H 10/12/18 04:50 INR 1.29 (0.83-1.16) H 10/12/18 04:50 Physical Exam - Physical Exam General Appearance: WD/WN, alert, no apparent distress EENT: No scleral icterus (R), No scleral icterus (L) Neck: normal inspection Respiratory: No respiratory distress Cardiac/Chest: regular rate, rhythm Abdomen: non-tender, soft, No distended Skin: normal color, warm/dry Extremities: pedal edema Neuro/Psych: no motor/sensory deficits, alert, normal mood/affect, oriented x 3 ICD10 Worksheet Patient Problems: Problems Problem Status Onset Acute blood loss anemia Acute S/P AVR Acute S/P ascending aortic aneurysm repair Acute Status post circumferential ablation of pulmonary vein Acute Aortic stenosis due to bicuspid aortic valve Chronic Ascending aorta dilatation Chronic PAT (paroxysmal atrial tachycardia) Chronic S/P AVR Acute
[2018-10-12] MEDS ORDERED: POTASSIUM CL 20 MEQ TAB PO ONE (08:08)
[2018-10-12] MEDS ORDERED: FUROSEMIDE 40 MG/4 ML VIAL IVP ONE (08:08)
[2018-10-12] MEDS: VITAMIN B COMPLEX 1 EA CAP/TAB PO SCH (08:38)
[2018-10-12] MEDS: IBUPROFEN 200 MG TAB PO PRN ×3 (08:38→21:18)
[2018-10-12] MEDS: MAGNESIUM OXIDE 400 MG TAB PO SCH (08:39)
[2018-10-12] MEDS: OMEGA-3 FATTY ACIDS 1,000 MG CAP PO SCH (08:39)
[2018-10-12] MEDS: ASPIRIN 81 MG CHEWABLE TAB PO SCH (08:39)
[2018-10-12] MEDS: PANTOPRAZOLE SODIUM 40 MG TAB PO SCH (08:39)
[2018-10-12] MEDS: SENNOSIDES/DOCUSATE SODIUM TAB PO SCH ×2 (08:41→20:36)
[2018-10-12] MEDS ORDERED: WARFARIN SODIUM 5 MG TAB PO ONE (16:00)
[2018-10-13 04:13] LABS: INR 1.37 (0.83-1.16)
[2018-10-13] MEDS: Brinzolamide/Brimonidine Tart [Simbrinza 1%-0.2% Eye Drops] 1 DROP EACHEYE SCH (06:13)
[2018-10-13] MEDS: LEVOTHYROXINE 75 MCG TAB PO SCH (06:13)
--- NOTE | 2018-10-13 07:54 | SOAPPROG ---
SONAEL Progress Note Assessment/Plan: POD #5: AVR with #25 Thao Resilia bioprosthetic aortic valve, resection and repair of ascending aortic aneurysm with #30 Hemashield graft, BL PVI RF ablation, suture ligation ZIA Severe aortic stenosis s/p bioprosthetic AVR - Thromboprophylaxis as per PVI ablation - Continue daily baby ASA - CTs out - PT/OT Ascending aortic aneurysm s/p repair - Mgmt as per AVR Paroxysmal atrial fibrillation s/p BL PVI RF ablation with exclusion of ZIA - Pt in SR, beta-nahomi avoided d/t low HR (low 60's) - Coumadin with INR goal 2-3, duration as per Lux-Maze protocol started - INR 1.37 today Acute post-op blood loss anemia with thrombocytopenia - Stable without the need for transfusions DVT prophylaxis - SCDs Small left apical ptx - stable, not requiring supplemental oxygen Disposition - Home without services today - Post-op TTE - Stop lasix Subjective: Feels less puffy. Still requiring [place] PRN for chest discomfort. Ready to go home today. Objective: Vital Signs Temp Pulse Resp BP Pulse Ox 37.0 C 65 17 101/66 100 10/13/18 07:36 10/13/18 07:36 10/13/18 07:36 10/13/18 07:36 10/13/18 07:36 Laboratory Results 10/12/18 04:50 10/11/18 03:11 10/12/18 10/13/18 10/14/18 05:59 05:59 05:59 Intake Total 915 1350 Output Total 1375 1100 Balance -460 250 PT 17.0 SEC (12.0-15.0) H 10/13/18 03:50 INR 1.37 (0.83-1.16) H 10/13/18 03:50 General Appearance: WD/WN, alert, no apparent distress EENT: No scleral icterus (R), No scleral icterus (L) Neck: normal inspection Respiratory: No respiratory distress Cardiac/Chest: regular rate, rhythm, sternum c/d/i and stable Abdomen: non-tender, soft, No distended Skin: normal color, warm/dry Extremities: trace LE edema Neuro/Psych: no motor/sensory deficits, alert, normal mood/affect, oriented x 3 ICD10 Worksheet Patient Problems: Problems Problem Status Onset Acute blood loss anemia Acute S/P AVR Acute S/P ascending aortic aneurysm repair Acute Status post circumferential ablation of pulmonary vein Acute Aortic stenosis due to bicuspid aortic valve Chronic Ascending aorta dilatation Chronic PAT (paroxysmal atrial tachycardia) Chronic S/P AVR Acute
--- NOTE | 2018-10-13 08:00 | PDDCSUM ---
Discharge Summary Discharge Summary: DATE OF ADMISSION: 10/08/18 DATE OF DISCHARGE: 10/13/18 DISPOSITION: Home without services ACTIVITY: Instructed on sternal precautions, activity restrictions, and problems to call [facility]. ADMISSION DIAGNOSES: Severe aortic stenosis due to bicuspid valve Dilated ascending aorta aneurysm Paroxysmal atrial fibrillation Hypertension Normal coronary arteries DISCHARGE DIAGNOSES: As above plus, Acute blood loss anemia with thrombocytopenia Small left apical pneumothorax PROCEDURE PERFORMED: 10/08/18, Dr. Gentry Cantor 1. Aortic valve replacement 25 mm Thao Resilia bioprosthetic valve 2. Resection and repair of ascending aortic aneurysm using a 30 mm Hemashield graft 3. Pulmonary vein isolation with bilateral radiofrequency ablation 4. Left atrial appendage occlusion 10/13/18 2. Post-operative transthoracic echocardiogram HISTORY OF PRESENT ILLNESS: This is a 62 year old male who presented for elective AVR (bioprosthetic), ascending aortic repair, and pulmonary vein isolation. He was previously seen in our clinic on 08/19/18 and again on 08/23/18. His bicuspid aortic valve stenosis is limiting his active lifestyle with declining exercise tolerance. Associated symptoms include dyspnea and fatigue. He was in contact with our office regarding a cold and cough which has improved. He still had mild PND. No fever or chills. He does not receive anticoagulation for his atrial fibrillation ([id number] score 1). Since he was seen by our service, he underwent a LHC by Dr. Gross which demonstrated an absence of CAD. US carotid was also negative for disease. HOSPITAL COURSE BY PROBLEM LIST: Severe bicuspid aortic stenosis s/p bioprosthetic AVR - Thromboprophylaxis as per PVI ablation. Home baby aspirin was restarted. Chest pain relieved with PRN [place] and musculoskeletal in nature. Post-operative TTE was performed on the day of discharge with final report pending. Ascending aortic aneurysm s/p repair - see AVR above Paroxysmal atrial fibrillation s/p BL PVI RF ablation with exclusion of ZIA - Patient remained in NSR throughout his hospital course. Beta-nahomi was not started due to borderline low heart rates in the 60s. Coumadin was started on with plan for 8 weeks. Acute post-op blood loss anemia with thrombocytopenia - as expected. Stable without the need for transfusion. Small left apical pneumothorax - seen on 10/12/18 chest xray. He was hemodynamically stable and discharged on room oxygen with SpO2 of 100%. PERTINENT DISCHARGE CLINICAL INFORMATION: Sternotomy stable, CDI HR 70 SBP 135/81 SpO2 100% RA pre-op wt 83.2/discharge wt 80.8 WBC 10.2 Hgb 9.9 HCT 29 Plt 138 Na 133 K 4.6 Cr 1.2 INR 1.37 [facility], Dr. Luc Solis MEDICATIONS ON ADMISSION: Flecainide Acetate 150 mg PO BID Aspirin 81 mg PO DAILY Losartan Potassium 25 mg PO BID Herbals/Supplements Levothyroxine Magnesium Oxide [place]-3 Fatty Acids Omeprazole Vitamin B Complex Brinzolamide/Brimonidine Tart ALLERGIES/SENSITIVITIES: amlodipine (edema) DISCHARGE MEDICATIONS: STOP these medications: Losartan Potassium 25 mg PO BID Flecainide Acetate 150 mg PO BID CONTINUE these medications: Aspirin 81 mg PO DAILY Herbals/Supplements Levothyroxine Magnesium Oxide [place]-3 Fatty Acids Omeprazole Vitamin B Complex Brinzolamide/Brimonidine Tart NEW medications: Warfarin 5 mg PO daily with goal INR 2-3 [place] 5/325 1-2 tabs PO q6 hours PRN moderate pain #30 FOLLOW UP APPOINTMENTS: 1. CV surgery: with Dr. Jj at [facility] on 10/21/18 @ 11:45. 2. Cardiology: with Dr. Roldan at [facility] within 4-6 weeks. Appointment to be established during surgical visit. 3. INR appointment 10/17/18 FOLLOW UP TESTING: CXR prior to surgical appointment INR per anticoagulation clinic - first appointment 10/17
[2018-10-13] MEDS: MAGNESIUM OXIDE 400 MG TAB PO SCH (08:12)
[2018-10-13] MEDS: ASPIRIN 81 MG CHEWABLE TAB PO SCH (08:13)
[2018-10-13] MEDS: VITAMIN B COMPLEX 1 EA CAP/TAB PO SCH (08:13)
[2018-10-13] MEDS: IBUPROFEN 200 MG TAB PO PRN (08:13)
[2018-10-13] MEDS: OMEGA-3 FATTY ACIDS 1,000 MG CAP PO SCH (08:13)
[2018-10-13] MEDS ORDERED: FUROSEMIDE 40 MG TAB PO SCH (09:00)
[2018-10-13] MEDS ORDERED: POTASSIUM CL 20 MEQ TAB PO SCH (09:00)
--- NOTE | 2018-10-13 09:06 | ASDISCHSUM ---
Discharge Information Plan Status:Home with No Needs Medically Cleared to Leave:10/12/2018 Discharge Date:10/12/2018 CM D/C Disposition:Home, Routine, Self-Care ADT D/C Disposition:Home, Routine, Self-Care Projected Discharge Date:10/12/2018 Transportation at D/C:Family Discharge Delay Reason: Follow-Up Date:10/12/2018 Discharge Slot: Final Diagnosis: Placement Information Patient Contact Information Contact Name:KALANI Relationship:Other Address: Home Phone: City: [facility] Phone: State/SCL Code: Email: Financial Information Financial Class:BCOP Primary Plan Desc: OUT OF STATE [facility] Primary Plan Number:[id number] Secondary Plan Desc: Secondary Plan Number: Assessment Information LACE LACE Length of stay for Answers: 4-6 days current admission Acuity / Level of Answers: Yes Care: Did the patient have an inpatient admission? Comorbidities - select Answers: Coronary Artery Disease all that apply Other Notes: Ascending aorta dilation, paroxysmal atrial tach # of Emergency department Answers: 0 visits in the last 6 months Score: 10 Date Signed: 10/13/2018 09:05 AM Electronically Signed By:JOSE ALBERTO Barksdale [facility] Initial CM Assessment Living Arrangements What is your living Answers: Alone arrangement? Who do you live with? Type Of Residence What kind of residence do Answers: House you live in? Discharge Plan Comments Coordination Status Comments Notes: Patient is a 62yo single male who was admitted for an elective AVR, ascending aortic repair and pulmonary vein isolation. Patient's bicuspid aortic valve stenosis is limiting his active lifestyle with declining exercise tolerance. No therapies ordered at this time. D/C plan TBD. CM will follow. Date Signed: 10/08/2018 11:15 AM Electronically Signed By:Delaney Lua LCSW [facility] CM Progress Note CM Note CM Note Notes: Patient will start with therapies tomorrow. CM will follow. Date Signed: 10/09/2018 11:00 AM Electronically Signed By:Delaney Lua LCSW [facility] CM Progress Note CM Note CM Note Notes: 10/12/2018 Case Management Note Reviewed chart. Per Edil Kearney's note pt will d/c home without services. Anticipating d/c early next week. Met w/pt to discuss. Pt requesting info on home care. Left list of agencies with understanding case management will hold off on referral until closer to discharge. Pt lives alone but has plans for friends to help once he is d/c. Pt plans for groceries to be delivered. Case Management d/c poc: anticipating independent with cardiac outpatient rehab Case Management to follow. Date Signed: 10/11/2018 12:46 PM Electronically Signed By:Gracie Yuan RN Case Management Discharge Plan Note Case Management Discharge Discharge Order Complete? Answers: Yes Patient to Obtain Answers: via Family Medications Transportation Arranged Answers: Family/Friends Discharge Comments Notes: Pt being discharged today independently with family support and outpatient Cardiac rehab. No other CM needs identified. Date Signed: 10/13/2018 09:04 AM Electronically Signed By:JOSE ALBERTO [place] Intervention Information
[2018-10-13 11:21] VITALS: BP 102/71
[2018-10-13] MEDS ORDERED: WARFARIN SODIUM 5 MG TAB PO SCH (16:00)
== END 2018-10-13 13:10 | disposition home or self-care (01) | DRG 220 ==
LOC: F2N 05:29 → F2W 10-10 13:00
PROVIDERS: ADMIT Thoracic Surgery (Cardiothoracic Vascular Surgery); ATTEND Thoracic Surgery (Cardiothoracic Vascular Surgery)
DX: Q23.1 Congenital insufficiency of aortic valve (principal); I71.2 Thoracic aortic aneurysm, without rupture; D62 Acute posthemorrhagic anemia; I48.0 Paroxysmal atrial fibrillation; D69.6 Thrombocytopenia, unspecified; Z79.01 Long term (current) use of anticoagulants; I10 Essential (primary) hypertension; E03.9 Hypothyroidism, unspecified
CPT/HCPCS: 82435-PO; 82565-PO; 82947-PO; 83605-PO; 84132-PO; 84295-PO; 84520-PO; 85014-PO; 97116-GP; 97161-GP; 97166-GO; 97530-GP; 97535-GO; C1768; J0153; J0171; J0282; J0330; J0690; J1250; J1265; J1644; J1815; J1885; J1940; J2001; J2150; J2250; J2260; J2270; J2370; J2704; J2720; J2930; J3010; J3475; J3480; P9041

== ENCOUNTER → 2018-10-15 | Outpatient (CLI) | payer BC | LOC: CIMAGING 10:28 | PROVIDERS: ATTEND Thoracic Surgery (Cardiothoracic Vascular Surgery) | DX: J90 Pleural effusion, not elsewhere classified (principal); J98.11 Atelectasis; Z95.2 Presence of prosthetic heart valve; Z86.79 Personal history of other diseases of the circulatory system; Z98.890 Other specified postprocedural states | CPT/HCPCS: 71046-PO ==

== ENCOUNTER → 2018-10-21 | Outpatient (CLI) | payer BC | LOC: FIMAGING 10:45 | PROVIDERS: ATTEND Thoracic Surgery (Cardiothoracic Vascular Surgery) | DX: Z09 Encounter for follow-up examination after completed treatment for conditions other than malignant neoplasm (principal); I51.7 Cardiomegaly; I27.0 Primary pulmonary hypertension; Z95.2 Presence of prosthetic heart valve ==

== ENCOUNTER → 2018-12-04 | Outpatient (CLI) | payer BC | LOC: CIMAGING 13:33 | PROVIDERS: ATTEND Internal Medicine Cardiovascular Disease | DX: Z48.89 Encounter for other specified surgical aftercare (principal) | CPT/HCPCS: 71046-PO ==

== ENCOUNTER 2018-12-24 12:15 | Emergency (ER) | payer BC ==
[2018-12-24 12:28] VITALS: BP 143/84
--- NOTE | 2018-12-24 13:11 | EDPHY ---
H & P Time Seen by Provider: 12/24/18 12:47 HPI/ROS: Chief complaint. Leg bruising HPI. 62-year-old male presents emergency department with complaint of bruising to the right leg. 5 days ago he had been riding an exercise bike and doing an exercise bike workout. Later he developed posterior hamstring cramp that lasted several hours. Pain continue the next day though the cramp was resolved. He saw an orthopedist for evaluation. He saw physical therapy who worked the hamstring with a roller. Now he has extensive bruising from the upper thigh to just below his knee. No swelling. Patient is on Coumadin. His INR today is 2.4. He has been using Tylenol for relief. He would like to get back to work but it does hurt especially with squatting and lifting. He has no chest discomfort or shortness of breath. No abdominal pain. ROS 10 systems were reviewed and negative with the exception of the elements mentioned in the history of present illness Past Medical/Surgical History: Aortic valve replacement for bicuspid aortic valve, hypertension, glaucoma, atrial fibrillation, hypothyroidism, knee surgery Social History: Single, nonsmoker, no alcohol Smoking Status: Never smoked Physical Exam: General Appearance: Alert pleasant well-developed male mild distress vital signs are stable Eyes: Pupils equal and round no pallor or injection. ENT, Mouth: Mucous membranes are moist. Respiratory: There are no retractions, lungs are clear to auscultation. Cardiovascular: Regular rate and rhythm. Gastrointestinal: Abdomen is soft and nontender, no masses, bowel sounds normal. Neurological: Awake and alert, sensory and motor exams grossly normal. Skin: Extensive ecchymosis from the upper posterior thigh to just below the posterior knee. No swelling. No tenderness to the knee or ankle. Distal motor vascular sensitivity is intact. Musculoskeletal: Neck is supple nontender. Extremities symmetrical, full range of motion. Psychiatric: Patient is oriented X 3, there is no agitation. Constitutional: Initial Vital Signs Temperature (C) 36.5 C 12/24/18 12:22 Heart Rate 54 L 12/24/18 12:22 Respiratory Rate 16 12/24/18 12:22 Blood Pressure 143/84 H 12/24/18 12:22 O2 Sat (%) 98 12/24/18 12:22 O2 Delivery Mode Room Air Allergies/Adverse Reactions: amlodipine [From [employer]] Allergy (Verified 12/24/18 12:28) Edema Home Medications: Medication Instructions Recorded Brinzolamide/Brimonidine Tart 1 drop EACHEYE TID 09/23/18 [Simbrinza 1%-0.2% Eye Drops] Levothyroxine [Synthroid 75 mcg 75 mcg PO DAILY06 09/23/18 (*)] Magnesium Oxide [Magnesium Oxide 400 mg PO DAILY 09/23/18 400 mg (*)] [place]-3 Fatty Acids [Fish Oil 1000 1,000 mg PO DAILY 09/23/18 mg (*)] Omeprazole 20 mg PO DAILY 09/23/18 Vitamin B Complex [Vitamin B 1 each PO DAILY 09/23/18 Complex (OTC)] Aspirin [Aspirin 81mg (*)] 81 mg PO DAILY 09/30/18 Acetaminophen [Tylenol 325mg (*)] 325 - 650 mg PO Q4HRS PRN tab 10/13/18 Warfarin Sodium [Coumadin 5MG (*)] 5 mg PO DAILY AT 4PM #30 tab 10/13/18 Metoprolol Succinate 12/24/18 Muscle Relaxant 12/24/18 Medical Decision Making ED Course/Re-evaluation: Patient remained stable. Patient and I discussed treatment plan including criteria for return importance of follow-up and further evaluation. 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 He expresses understanding and agreement Differential Diagnosis: No evidence for DVT or arterial thrombus. No evidence of fracture. Extensive bruising secondary to being on Coumadin and having muscle cramps. I do not find any evidence of hamstring tear though clearly there was likely some injury to the muscle. He has already been seen by both orthopedist and total therapist for the injury. Departure - Departure Disposition: Home, Routine, Self-Care Clinical Impression: Ecchymosis Condition: Good Instructions: Ecchymosis (ED) Additional Instructions: Heat to the area of bruising. Easy activity includes easy bike riding and spinning without much resistance. Walking is fine. Avoid squatting and lifting next 3 days. Tylenol 1000 mg every 6 hr for discomfort Return for worsening symptoms Re-evaluation in 3-4 days if not improving Continue your Coumadin Referrals: NONE *PRIMARY CARE P,. [Primary Care Provider] - As per Instructions Arthur Roldan MD [Medical Doctor] - 3-4 days, if not improved Stand Alone Forms: Work Excuse
== END 2018-12-24 13:15 | disposition home or self-care (01) ==
LOC: CED 12:15
DX: R58 Hemorrhage, not elsewhere classified (principal); I48.91 Unspecified atrial fibrillation; I10 Essential (primary) hypertension; Z79.01 Long term (current) use of anticoagulants
CPT/HCPCS: 99282-ER